=== PATIENT | male | born 1945 | race Hispanic/Latino ===

== ENCOUNTER 2018-09-24 18:52 | Inpatient (IN) | payer OTHER ==
[~2018-09-24] VITALS: Ht 170.2 cm; Wt 64.0 kg
[2018-09-24] MEDS ORDERED: ASPIRIN 81 MG CHEW TAB PO ONE (19:30)
[2018-09-24 19:36] LABS: BASOPHILS % 0.6 % (0.0-1.0); EOSINOPHILS # (AUTO) 0.1 (0.0-0.4); EOSINOPHILS % 1.7 % (0.0-6.0); HEMATOCRIT 41.1 % (38.2-49.6); HEMOGLOBIN 13.7 g/dL (14.0-18.0); LYMPHOCYTES # (AUTO) 2.2 (1.0-3.2); MEAN CORPUSCULAR HEMOGLOBIN 30.6 pg (28-32); MEAN CORPUSCULAR HGB CONC 33.3 g/dL (31-35); MEAN CORPUSCULAR VOLUME 91.9 fL (81-99); MONOCYTES # (AUTO) 0.7 (0.2-0.8); MONOCYTES % 9.8 % (4.4-11.3); NEUTROPHILS % 56.8 % (38.7-80.0); PLATELET COUNT 264 x10e3/uL (140-360); RED BLOOD COUNT 4.47 x10e6/uL (4.3-5.7); RED CELL DISTRIBUTION WIDTH 14.1 % (11.7-14.4)
[2018-09-24 19:45] LABS: INR 0.89; PROTHROMBIN TIME 12.5 seconds (11.9-14.5)
[2018-09-24 19:46] LABS: PARTIAL THROMBOPLASTIN TIME 30.4 seconds (23.8-35.5)
[2018-09-24 19:56] LABS: ALBUMIN 3.9 g/dL (3.5-5.0); ANION GAP 14.1 mmol/L (8-16); CREATININE, SERUM 1.25 mg/dL (0.72-1.25); POTASSIUM 3.1 mmol/L (3.5-5.1)
--- NOTE | 2018-09-24 19:56 | Diagnostic Imaging Report ---
A single frontal view of the chest. HISTORY: chest pain COMPARISON: None available. DISCUSSION: Portable technique, limits sensitivity of the exam. Overlying monitoring leads. Tubes/Lines: None Lungs and pleura: Mild bibasilar atelectasis. No evidence of a consolidative pneumonia or pulmonary alveolar edema. No definite pleural effusion or pneumothorax is identified. Heart and mediastinum: The cardiomediastinal silhouette appears unremarkable. Bones and soft tissues: Appear unremarkable, given this limited exam. IMPRESSION: 1. Mild bibasilar atelectasis. 2. Otherwise, no acute radiographic abnormality. Signed by: Dr. Alireza Thorne D.O., M.M.M. on 09/24/2018 7:53 PM
[2018-09-24 20:02] LABS: CREATINE KINASE MB 1.8 ng/mL (0-5.0)
[2018-09-24] MEDS ORDERED: FUROSEMIDE40 MG PO (20:33)
[2018-09-24] MEDS ORDERED: ENTRESTO PO (20:33)
[2018-09-24] MEDS ORDERED: ATORVASTATIN CA80 MG PO (20:33)
[2018-09-24] MEDS ORDERED: LEVOTHYROXINE25 MCG PO (20:33)
[2018-09-24] MEDS ORDERED: METFORMIN HCL500 MG PO (20:33)
[2018-09-24] MEDS ORDERED: CLOPIDOGREL75 MG PO (20:33)
[2018-09-24] MEDS ORDERED: METOPROLOL SUCC25 MG PO (20:33)
[2018-09-24] MEDS ORDERED: POTASSIUM CHLORIDE 20 MEQ TAB CR PO ONE (20:39)
[2018-09-24] MEDS ORDERED: DEXTROSE 50% SYRINGE 50 ML IV PRN (21:00)
--- OUTSIDE RECORDS SUMMARY | 2018-09-24 21:02 | XMS REPORT ---
Author Author [facility] Address Unknown Phone Unavailable Care Team Providers Care Supervisor Finishing Department Name Role Phone Genoveva MILLER Unavailable Unavailable Problems This patient has no known problems. Allergies, Adverse Reactions, Alerts This patient has no known allergies or adverse reactions. Medications This patient has no known medications. Results Test Description Test Time Test Comments Text Results Atomic Results Result Comments CHEST SINGLE (PORTABLE) 2018-09-24 19:50:00 [facility] [address] [address] Patient Name: KITTY CHENEY MR #: [id number] : 1945 Age/Sex: 72/M Req #: [id number] Adm Physician: Ordered by: ALEX TORRES MD Report #: [id number] Location: ER Room/Bed: Procedure: [id number] DX/CHEST SINGLE (PORTABLE) Exam Date: 09/24/18 Exam Time: 1934 REPORT STATUS: Signed A single frontal view of the chest. HISTORY: chest pain COMPARISON: None available. DISCUSSION: Portable technique, limits sensitivity of the exam. Overlying monitoring leads. Tubes/Lines: None Lungs and pleura: Mild bibasilar atelectasis. No evidence of a consolidative pneumonia or pulmonary alveolar edema. No definite pleural effusion or pneumothorax is identified. Heart and mediastinum: The cardiomediastinal silhouette appears unremarkable. Bones and soft tissues: Appear unremarkable, given this limited exam. IMPRESSION: 1. Mild bibasilar atelectasis. 2. Otherwise, no acute radiographic abnormality. Signed by: Dr. Xander Thorne D.O., M.M.M. on 09/24/2018 7:53 PM Dictated By: XANDER THORNE DO 52 Transcribed By: GALINDO on 09/24/181952 COPY TO: ALEX TORRES MD
[2018-09-24] MEDS: INSULIN REGULAR, HUMAN 100 UNIT/1 ML 3ML VIAL SQ SCH (21:44)
[2018-09-25] VITALS (10 sets, daily range): BP systolic 102–141; BP diastolic 58–74
--- NOTE | 2018-09-25 00:20 | NUR ---
Received report from ZAN Paniagua nurse. patient arrived via stretcher. Patient in no pain or distress. call light within reach.
[2018-09-25 03:57] LABS: CREATINE KINASE MB 1.6 ng/mL (0-5.0)
[2018-09-25 06:13] LABS: BASOPHILS % 0.3 % (0.0-1.0); EOSINOPHILS # (AUTO) 0.1 (0.0-0.4); EOSINOPHILS % 2.3 % (0.0-6.0); HEMATOCRIT 37.9 % (38.2-49.6); HEMOGLOBIN 12.5 g/dL (14.0-18.0); LYMPHOCYTES # (AUTO) 1.8 (1.0-3.2); LYMPHOCYTES % 29.8 % (18.0-39.1); MEAN CORPUSCULAR HEMOGLOBIN 30.4 pg (28-32); MEAN CORPUSCULAR VOLUME 92.2 fL (81-99); MONOCYTES # (AUTO) 0.8 (0.2-0.8); NEUTROPHILS # (AUTO) 3.3 (2.1-6.9); NEUTROPHILS % 54.4 % (38.7-80.0); PLATELET COUNT 222 x10e3/uL (140-360); RED BLOOD COUNT 4.11 x10e6/uL (4.3-5.7); RED CELL DISTRIBUTION WIDTH 14.1 % (11.7-14.4)
[2018-09-25 06:46] LABS: ALANINE AMINOTRANSFERASE 9 IU/L (0-55); ALBUMIN 3.2 g/dL (3.5-5.0); ALKALINE PHOSPHATASE 92 IU/L (40-150); ANION GAP 9.6 mmol/L (8-16); BLOOD UREA NITROGEN 20 mg/dL (7-26); BUN/CREATININE RATIO 19 (6-25); CALCIUM 9.4 mg/dL (8.4-10.2); CARBON DIOXIDE 28 mmol/L (22-29); CHLORIDE 107 mmol/L (98-107); CHOL/HDL RATIO 3.6 (3.9-4.7); CHOLESTEROL 160 MD/DL (0-199); CREATININE, SERUM 1.07 mg/dL (0.72-1.25); EST GLOMERULAR FILTRATION RATE > 60 ML/MIN (60-); GLUCOSE 90 mg/dL (74-118); HDL CHOLESTEROL 45 MG/DL (40-60); LDL CHOLESTEROL 90 MG/DL (60-130); POTASSIUM 3.6 mmol/L (3.5-5.1); SODIUM 141 mmol/L (136-145); TRIGLYCERIDES 126 MG/DL (0-149)
--- NOTE | 2018-09-25 07:15 | NUR ---
Patient is a&ox4 in NAD. Tele#[phone], SR@[phone]. POC discussed. Patient verbalized understanding. Bed in lowest position, locked and call shaw within reach.
--- NOTE | 2018-09-25 07:23 | NUR ---
Gave report to oncoming nurse. Patient A&Ox3. Call light within reach. Patient in bed.
[2018-09-25] MEDS: INSULIN REGULAR, HUMAN 100 UNIT/1 ML 3ML VIAL SQ SCH (07:30)
[2018-09-25] MEDS: ASPIRIN 81 MG ENTERIC COATED PO SCH (08:36)
[2018-09-25] MEDS ORDERED: DEXTROSE 50% SYRINGE 50 ML IV PRN (10:30)
[2018-09-25] MEDS ORDERED: FUROSEMIDE 40 MG TAB PO SCH (11:00)
[2018-09-25] MEDS: INSULIN LISPRO 100 UNIT/1 ML 3ML VIAL SQ SCH ×3 (11:30→21:00)
[2018-09-25] MEDS: POTASSIUM CHLORIDE 10MEQ EA PO SCH (11:39)
[2018-09-25] MEDS: LEVOTHYROXINE SODIUM 25 MCG TABLET PO SCH (11:40)
[2018-09-25] MEDS: CLOPIDOGREL BISULFATE 75 MG TAB PO SCH (11:40)
[2018-09-25] MEDS: METOPROLOL SUCCINATE 25 MG TAB XL PO SCH (17:00)
--- NOTE | 2018-09-25 17:06 | History and Physical ---
PCP: Dr. Armani Beach. INVESTIGATOR OPERATOR: Dr. Blaze Catherine. CHIEF COMPLAINT: Chest pain with history of coronary artery disease with cardiac stent. HISTORY: A 72 years old male with cardiac stent, came in with chest pain typical per patient description. The patient is an ex-smoker, quit many years ago. He had only cholecystectomy. No cardiac surgery. The patient, however, had stent placement and he is on Plavix and aspirin. The patient is stable. Pain off and on for the past few months. The patient is otherwise stable. Cardiac enzyme has been negative. PAST MEDICAL HISTORY: Coronary artery disease with stent. Compensated congestive heart failure. Diabetes type 2. Dyslipidemia. Hypertension. PAST SURGICAL HISTORY: Coronary stent. Cholecystectomy. SOCIAL HISTORY: The patient quit smoking many years ago. No alcohol consumption. ALLERGIES: NO KNOWN ALLERGIES. HOME MEDICATIONS: List is reviewed. REVIEW OF SYSTEMS: Chest pain, resolved. No nausea. No vomiting. No radiating pain. PHYSICAL EXAMINATION: VITAL SIGNS: Temperature is 98, blood pressure 106/59, pulse rate 54, respirations 18. GENERAL: The patient is not in acute distress. HEENT: Normocephalic, atraumatic. Anicteric. NECK: Supple grossly. PULMONARY: Diminished breath sounds with some coarse. CARDIOVASCULAR: S1, S2. Regular rate and rhythm. ABDOMEN: Soft. EXTREMITIES: No cyanosis or edema. NEUROLOGIC: No gross focal deficit. IMPRESSION: 1. Chest pain. 2. Baseline coronary artery disease with stent and congestive heart failure compensated. PLAN: Consult Dr. Blaze Catherine. Continue with home medication. Hold off the metformin for now. Insulin sliding scale coverage. Check echocardiogram. The patient's cardiac enzyme has been negative. BUN and creatinine is 20 and 1.07 respectively. MD CONRADO Atkins/MODL /[id number]
--- NOTE | 2018-09-25 19:05 | NUR ---
Walking rounds done. Patient in restroom without any complaints voiced. Patient instructed to call for assistance as needed and verbalized understanding.
--- NOTE | 2018-09-25 19:51 | NUR ---
PATIENT RESTING IN BED, HE DENIES CHEST PAIN AT THIS TIME. SKIN INTEGRITY INTACT, BRUISES TO THE ARMS, LUNGS SOUNDS DIMINISHED AND HE DENIES SHORTNESS OF BREATH. CALL LIGHT WITHIN EASY REACH, HE'S INSTRUCTED TO CALL FOR ASSISTANCE NEEDED.
[2018-09-25] MEDS: FUROSEMIDE INJ 10 MG/ML 4 ML VIAL IV SCH (21:50)
[2018-09-25] MEDS: ATORVASTATIN 40 MG TAB PO SCH (21:50)
[2018-09-26] VITALS (7 sets, daily range): BP systolic 89–121; BP diastolic 54–70
--- NOTE | 2018-09-26 00:54 | NUR ---
NO ACUTE DISTRESS OBSERVED, PATIENT DENIES CHEST PAIN. BLOOD PRESSURE LOW, PATIENT DENIES DIZZINESS. HE'S INSTRUCTED TO CALL FOR ASSISTANCE UPON GETTING OUT OF THE BED.
--- NOTE | 2018-09-26 01:01 | Consultation ---
DATE OF CONSULTATION: 09/25/2018 Cardiology Consult Note. REASON FOR CONSULT: Chest pain. CHIEF COMPLAINT: Chest pain. HISTORY OF PRESENT ILLNESS: The patient is a 72-year-old man with history of coronary artery disease status post two stents in the past, who presents with chest pain since yesterday. Chest pain is constant, left-sided, does not change with exertion, some improvement with burping. No diaphoresis. Does not radiate anywhere. No shortness of breath. It lasted all night and was still having this morning, but is getting better. REVIEW OF SYSTEMS: As above, otherwise negative. PAST MEDICAL HISTORY: 1. Coronary artery disease, status post stenting. 2. Chronic systolic heart failure. 3. Diabetes. 4. Dyslipidemia. 5. Hypertension. PAST SURGICAL HISTORY: Coronary stent, cholecystectomy. SOCIAL HISTORY: Former smoker, quit many years ago. Does not drink or abuse drugs. ALLERGIES: NO KNOWN DRUG ALLERGIES. HOME MEDICATIONS: List reviewed. FAMILY HISTORY: No family history of early CAD or sudden cardiac . OBJECTIVE: VITAL SIGNS: Temperature 95.3, pulse 60, respiratory rate 20, blood pressure 121/69, saturating 98% on room air. GENERAL: Elderly man in no acute distress. CARDIOVASCULAR: Regular rate and rhythm. No murmurs, rubs, or gallops. LUNGS: Clear to auscultation. ABDOMEN: Soft, nontender, nondistended. NEUROLOGIC: Intact. Alert and oriented to person, place, and time. Normal affect. INPATIENT MEDICATIONS: Reviewed. LABORATORY DATA: Reviewed. Troponins are negative. IMAGING DATA: Reviewed. Chest x-ray without any significant cardiopulmonary abnormalities. Telemetry data reviewed, shows normal sinus rhythm. EKG reviewed, shows normal sinus rhythm with nonspecific ST changes. ASSESSMENT: 1. Chest pain. 2. History of coronary artery disease, status post stents in the past. 3. Chronic systolic heart failure. PLAN: The patient has been ruled out for acute DC with serial cardiac enzymes. BNP was mildly elevated. We will give him a dose of IV Lasix in addition to his oral dose of Lasix. Overall, starting to feel better already. Chest pain is very atypical. If he rules out for acute DC, he is okay to be discharged home with followup in clinic one week after discharge with Dr. Catherine. MD HOLDEN Boston/SHAWL /[id number]
--- NOTE | 2018-09-26 04:15 | NUR ---
PATIENT CONDITION STABLE, HE DENIES CHEST PAIN. CALL LIGHT WITHIN EASY, HE'S INSTRUCTED TO CALL FOR ASSISTANCE NEEDED.
[2018-09-26] MEDS: LEVOTHYROXINE SODIUM 25 MCG TABLET PO SCH (06:35)
--- NOTE | 2018-09-26 06:58 | NUR ---
Walking rounds done. Patient is resting in bed denies any pain, SOB, dizziness or Cp. He was instructed to call for assistance as needed and verbalized understanding. Tele#[phone], SB@[phone]. Call shaw within reach.
[2018-09-26] MEDS: INSULIN LISPRO 100 UNIT/1 ML 3ML VIAL SQ SCH ×4 (07:30→20:17)
[2018-09-26] MEDS: ENTRESTO PO SCH (08:08)
[2018-09-26] MEDS: POTASSIUM CHLORIDE 10MEQ EA PO SCH (08:16)
[2018-09-26] MEDS: CLOPIDOGREL BISULFATE 75 MG TAB PO SCH (08:16)
[2018-09-26] MEDS: ASPIRIN 81 MG ENTERIC COATED PO SCH (08:16)
[2018-09-26] MEDS: FUROSEMIDE INJ 10 MG/ML 4 ML VIAL IV SCH ×2 (08:16→20:22)
[2018-09-26] MEDS: METOPROLOL SUCCINATE 25 MG TAB XL PO SCH (08:17)
[2018-09-26] MEDS ORDERED: FUROSEMIDE40 MG PO (09:28)
--- NOTE | 2018-09-26 11:30 | NUR ---
Per Benita Johnson NP, after reviewing records patient's EF on echo has decreased. She communicated that the patient would possibly need a heart cath and consult with EP. Dr. Pratt called and updated. Received order to cancel discharge and make patient an inpatient
--- NOTE | 2018-09-26 13:52 | NUR ---
Patient transferred to unit from OBS. Patient is AAOx3. Ambulates with assist. Arrived via wheelchair. No c/o chest pain and no shortness of breath noted. Patient is on O2 at 2L NC. Lung garcia clear to auscultation. Bowel sounds present x4. NO edema noted.
--- NOTE | 2018-09-26 13:52 | NUR ---
Patient transferred to room 101 per inpatient order. Report given to RN.
--- NOTE | 2018-09-26 14:28 | Progress Note ---
DATE: Cardiology Progress Note SUBJECTIVE: The patient complains of left-sided chest pain and also some shortness of breath. Denies any weakness. OBJECTIVE: VITAL SIGNS: Temperature 96.8, pulse 65, respiratory rate 22, blood pressure 121/70, and oxygen saturation 100% on room air. GENERAL: Alert and oriented x3. Resting comfortably in bed. Does not appear to be in any acute distress. NECK: Supple. No JVD noted. CARDIOVASCULAR: Regular rate and rhythm. No murmurs or gallops noted. LUNGS: Diminished breath sounds throughout. No wheezing. No rhonchi or crackles. ABDOMEN: Soft and nontender. CARDIOVASCULAR MEDICATIONS: Metoprolol 25 mg p.o. b.i.d., Lasix 40 mg q.12 hours IV, Plavix 75 p.o. daily, aspirin 81 p.o. daily, and atorvastatin 80 p.o. at bedtime. LABORATORY DATA: No new labs from today. Troponin negative as of yesterday. ASSESSMENT: 1. Atypical chest pain. 2. History of coronary artery disease, status post stents in the past. 3. Chronic systolic heart failure. RECOMMENDATIONS: Repeat cardiac enzymes again today. Review echocardiogram from the office first. Preliminary of the current echocardiogram in this admission shows ejection fraction of 15% approximately. Maintain on telemetry at all time. Parameters given for administration of cardiac medication . Dictated by Benita Canas NP Blaze Catherine MD JWV/KELL /[id number]
[2018-09-26] MEDS: ATORVASTATIN 40 MG TAB PO SCH (20:22)
--- NOTE | 2018-09-26 22:11 | NUR ---
Patient said he used the restroom often so he doesn't want the bed alarm on.
[2018-09-27] VITALS (9 sets, daily range): BP systolic 103–121; BP diastolic 53–68
--- NOTE | 2018-09-27 03:07 | Discharge Summary ---
The patient was placed on observation BARRATTE OPERATOR: Blaze Catherine MD Seen by Dr. Ortega. HISTORY: This is a 72-year-old male with coronary artery disease and congestive heart failure, came into the hospital with atypical chest pain. The patient has had vascular congestion with increase in BNP. The patient was seen by Dr. Sagar Ortega covering for Dr. Blaze Catherine. The patient is stable. He was given extra Lasix and he is doing well. No chest pain and no shortness of breath. Only medication the patient go home will be the change from furosemide/Lasix 40 mg once a day to twice a day. Add on potassium 20 mEq daily. If the patient is stable, we will discharge home. Follow up with Dr. Blaze Catherine next week. DISCHARGE MEDICATIONS: 1. Resume home medication with changes of Lasix 40 mg twice a day. 2. Potassium 20 mEq daily. MD CONRADO Atkins/KELL /[id number]
[2018-09-27] MEDS: LEVOTHYROXINE SODIUM 25 MCG TABLET PO SCH (05:33)
--- NOTE | 2018-09-27 07:16 | NUR ---
Rcvd patient in report this am. Patient is asleep in bed at this time. No s/s of distress noted.
[2018-09-27] MEDS: INSULIN LISPRO 100 UNIT/1 ML 3ML VIAL SQ SCH ×4 (07:30→20:26)
[2018-09-27] MEDS: FUROSEMIDE INJ 10 MG/ML 4 ML VIAL IV SCH ×3 (08:01→20:25)
[2018-09-27] MEDS: ASPIRIN 81 MG ENTERIC COATED PO SCH (08:01)
[2018-09-27] MEDS: ENTRESTO PO SCH (08:01)
[2018-09-27] MEDS: POTASSIUM CHLORIDE 10MEQ EA PO SCH (08:02)
[2018-09-27] MEDS: CLOPIDOGREL BISULFATE 75 MG TAB PO SCH (08:02)
[2018-09-27] MEDS ORDERED: ACETAMINOPHEN 325 MG TAB PO PRN (08:15)
[2018-09-27] MEDS ORDERED: ACETAMINOPHEN/CODEINE 300MG - 30MG TAB PO PRN (08:15)
[2018-09-27] MEDS ORDERED: METOPROLOL SUCCINATE 25 MG TAB XL PO SCH (09:00)
[2018-09-27 10:13] LABS: ANION GAP 16.7 mmol/L (8-16); CALCIUM 10.3 mg/dL (8.4-10.2); CREATININE, SERUM 1.31 mg/dL (0.72-1.25); POTASSIUM 3.7 mmol/L (3.5-5.1)
--- NOTE | 2018-09-27 10:32 | NUR ---
Patient is AAOx3. Patient lung garcia clear to auscultation. Bowel sounds present x4. No edema noted. Patient ambulates on his own but had some dizziness this am when ambulating. NO c/o chest pain at this time. patient resting in bed.
[2018-09-27] MEDS ORDERED: SODIUM CHLORIDE 0.9% 1000ML 1,000 ML IV SCH (12:30)
[2018-09-27] MEDS ORDERED: ISOSORBIDE MONONITRATE 30 MG TAB CR PO SCH (12:45)
--- NOTE | 2018-09-27 13:05 | NUR ---
Met with patient and family and explained IMM letter. Verbalized understanding and signed Copy to pt and original placed on chart.
--- NOTE | 2018-09-27 14:38 | Progress Note ---
DATE: Cardiology Progress Note SUBJECTIVE: The patient continues to endorse some left-sided chest pain including last night. Denies any shortness of breath. OBJECTIVE: VITAL SIGNS: Temperature 97.0, pulse 78, respiratory rate 18, blood pressure 115/68, and oxygen saturation 97% on room air. GENERAL: Alert and oriented x3. Resting comfortably in bed, does not appear to be in any acute distress. NECK: Supple. No JVD noted. CARDIOVASCULAR: Regular rate and rhythm. No murmurs, no gallops noted. LUNGS: Diminished breath sounds throughout. No wheezing. No rhonchi or crackles. ABDOMEN: Soft and nontender. EXTREMITIES: Lower extremity, no edema. 2+ pedal pulses. CARDIOVASCULAR MEDICATIONS: 1. Metoprolol succinate 25 mg p.o. daily. 2. Potassium chloride 20 mEq p.o. daily. 3. Plavix 75 p.o. daily. 4. Lasix 40 mg IV q.12 hours. 5. Aspirin 81 mg p.o. daily. 6. Atorvastatin 80 mg p.o. at bedtime. LABORATORY DATA: Sodium 140, potassium 3.7, BUN 28, and creatinine 1.31. TELEMETRY: Sinus rhythm. ASSESSMENT: 1. Atypical chest pain. 2. History of coronary artery disease, status post stents in the past, [id number] myocardial infarction in 2017. 3. Chronic systolic heart failure with now worsening ejection fraction. RECOMMENDATIONS: Left heart catheterization scheduled for tomorrow morning. IV hydration overnight with noted renal insufficiency. Maintain on telemetry at all time. Long-acting nitrate added to the above-listed cardiac medications for pain control. We will continue to follow patient very closely. The patient will need AICD evaluation or LifeVest upon discharge. EP has been consulted. The patient is well known to our practice and has become more noncompliant lately. It is reported by nursing that he recently lost his . Dictated by Benita Canas NP MD LEONID DeshpandeV/SHAWL /[id number]
--- NOTE | 2018-09-27 19:14 | Consultation ---
DATE OF CONSULTATION: 09/27/2018 CONSULT DIAGNOSIS: Evaluation for ICD for primary prevention of sudden cardiac . HISTORY OF PRESENT ILLNESS: Mr. Dos Santos is a 72-year-old gentleman with advanced ischemic cardiomyopathy. He had three stents put in last year by Dr. Catherine and he was on Entresto, he was on Plavix. His EF continues to drop and currently 15%, he has NYHA class III. He presented with chest pain again and he was supposed to have a heart catheterization tomorrow. PAST MEDICAL HISTORY: Ischemic cardiomyopathy, EF 15%, NYHA class III. Coronary artery disease, PCI, and chest pain. SOCIAL HISTORY: The patient lives in [place]. His six months ago. He lives by himself. FAMILY HISTORY: Negative for sudden or atrial fibrillation. REVIEW OF SYSTEMS: As above. Otherwise negative for fevers, chills, loss of vision or blurry vision, ear pain, ear discharge, headache, numbness. Positive for chest pain and palpitation. Negative for cough, sputum, nausea, vomiting, dysuria, frequency, rash, bruise, bleeding, clots, anxiety, depression, heat or cold intolerance. PHYSICAL EXAMINATION: VITAL SIGNS: Blood pressure 110/75, heart rate is 62 beats per minute. GENERAL: The patient is lying in bed, in no apparent distress. NECK: No lymphadenopathy. Thyroid exam is normal. CARDIOVASCULAR: S1 and S2. LUNGS: Clear bilaterally. ABDOMEN: Soft, benign. EXTREMITIES: Warm and dry. NEURO: Nonfocal. SKIN: No new rash. PSYCH: No anxiety or depression. IMAGING: EKG shows normal sinus rhythm at 62, QRS is 92. ASSESSMENT AND PLAN: A 72-year-old gentleman with advanced severe ischemic cardiomyopathy on optimal medical management, had cath last year, ejection fraction remains very low. He has class I indication for implantable cardioverter-defibrillator for primary prevention of sudden cardiac , although not bradycardiac, but heart rate on the low side of the normal spectrum therefore he would require dual-chamber implantable cardioverter-defibrillator to be able to optimize his beta-blockers. I discussed with him and I will discuss with Dr. Catherine. Dr. Catherine, he would benefit from this. We will decide on the timing of this procedure after his cath. Due to his very low EF and long standing ischemic cardiomyopathy, he is very high risk for sudden , so we will recommend implantable cardioverter-defibrillator implant as soon as possible. In summary, dual implantable cardioverter-defibrillator implant recommended. We will wait for cath results to finalize the plan. MD CATINA Means/KELL /[id number]
--- NOTE | 2018-09-27 19:28 | NUR ---
Patient complain of heartburn. Message left for Dr. Pratt. Waiting for call back.
[2018-09-27] MEDS: ATORVASTATIN 40 MG TAB PO SCH (20:18)
--- NOTE | 2018-09-27 22:11 | NUR ---
patient had hibiclens bath.
[2018-09-28 04:00] VITALS: BP 97/63
[2018-09-28] MEDS: LEVOTHYROXINE SODIUM 25 MCG TABLET PO SCH (05:05)
[2018-09-28 05:31] LABS: INR 0.9; PARTIAL THROMBOPLASTIN TIME 30.9 seconds (23.8-35.5); PROTHROMBIN TIME 12.6 seconds (11.9-14.5)
[2018-09-28 05:37] LABS: ANION GAP 11.5 mmol/L (8-16); BLOOD UREA NITROGEN 28 mg/dL (7-26); BUN/CREATININE RATIO 25 (6-25); CALCIUM 8.7 mg/dL (8.4-10.2); CARBON DIOXIDE 27 mmol/L (22-29); CHLORIDE 101 mmol/L (98-107); CREATININE, SERUM 1.13 mg/dL (0.72-1.25); EST GLOMERULAR FILTRATION RATE > 60 ML/MIN (60-); GLUCOSE 94 mg/dL (74-118); POTASSIUM 4.5 mmol/L (3.5-5.1); SODIUM 135 mmol/L (136-145)
--- NOTE | 2018-09-28 05:48 | NUR ---
BP rechecked 101/61 mmhg pulse 58 bpm. Patient is asymptomatic. Alert and oriented.
[2018-09-28] MEDS ORDERED: LIDOCAINE HCL 2% LOCAL 20 ML VIAL ONE (06:39)
[2018-09-28] MEDS ORDERED: IOPAMIDOL 370 MG/ML 200 ML INFUS..BTL INJ ONE ×2 (06:39→07:31)
[2018-09-28] MEDS ORDERED: HEPARIN SOD/SOD CHLORIDE 2,000 ML ONE (06:39)
[2018-09-28] MEDS ORDERED: VERAPAMIL HCL 2.5 MG/ML 2 ML VIAL ONE (06:43)
[2018-09-28] MEDS ORDERED: MIDAZOLAM HCL 2 MG/2 ML VIAL ONE (06:44)
[2018-09-28] MEDS ORDERED: SODIUM CHLORIDE 0.9% 1000ML 1,000 ML ONE (06:45)
[2018-09-28] MEDS ORDERED: NITROGLYCERIN/D5W 200 MCG/ML 250 ML ONE (06:45)
[2018-09-28] MEDS ORDERED: FENTANYL CITRATE/PF 100MCG/2 ML INJ ONE (06:45)
--- NOTE | 2018-09-28 07:30 | NUR ---
Received patient AAOx3, son at bedside. Patient on room air. Patient has gone for heart cath procedure. No s/s of distress. Patient on NPO diet for procedure. Tele monitor #27 running at normal sinus rhythm. Patient transferred to laborer plumbing via bed.
[2018-09-28] MEDS ORDERED: BIVALRIUDIN 250 MG/VIAL VIAL IV ONE (07:35)
[2018-09-28] MEDS ORDERED: SODIUM CHLORIDE 0.9% 50ML 50 ML ONE (07:35)
[2018-09-28] MEDS ORDERED: ASPIRIN 325 MG TAB ONE (07:48)
[2018-09-28] MEDS ORDERED: TICAGRELOR 90 MG TABLET ONE (07:48)
--- NOTE | 2018-09-28 08:10 | NUR ---
Patient has returned from curb and gutter laborer. Patient is to lay flat until 10 am and then he can be discharged. Patient placed on cardiac diet. Normal saline running at 75 ml/hr. Procedure site to the right groin. Stent to the left anterior descending. Dressing to the puncture site is dry and intact without any complications. Son at the bedside. No s/s of distress and patient on room air. Side rails up x2, bed in lowest position, and call shaw within reach.
[2018-09-28 08:43] VITALS: BP 114/59
[2018-09-28] MEDS ORDERED: ASPIRIN 325 MG TAB PO SCH (08:45)
--- NOTE | 2018-09-28 10:25 | NUR ---
EDUCATED ABOUT IMM, SIGNED, FILED IN CHART, WITH COPY LEFT WITH FAMILY AT BEDSIDE.
[2018-09-28 11:37] VITALS: BP 110/56
[2018-09-28] MEDS ORDERED: LASIX40 MG PO (12:32)
[2018-09-28] MEDS ORDERED: POTASSIUM99 M1 PO (12:35)
[2018-09-28] MEDS ORDERED: ECOTRIN81 MG PO (12:39)
[2018-09-28] MEDS ORDERED: KLOR-CON20 MEQ PO (12:40)
--- NOTE | 2018-09-28 14:32 | Progress Note ---
DATE: 09/28/2018 Cardiology Progress Note SUBJECTIVE: Mr. Dos Santos has no further angina. His shortness of breath has resolved. He is scheduled for coronary angiography today. PHYSICAL EXAMINATION: VITAL SIGNS: Afebrile, heart rate 58, blood pressure is 108/70, and O2 saturation 98%. CARDIOVASCULAR: Regular rhythm, S3 gallop, systolic murmur. LUNGS: Clear to auscultation bilaterally. TELEMETRY: Shows sinus bradycardia. ASSESSMENT: Acute systolic heart failure. RECOMMENDATIONS: Coronary angiography and LAD stent placement performed successfully without complications. The patient is stable for discharge from the cardiac standpoint with close followup in 2 weeks in the office. I thank Dr. Pratt for this consultation. MD LESLIE Deshpande/MODL /[id number]
--- NOTE | 2018-09-28 15:53 | Operative Report ---
DATE OF PROCEDURE: 09/28/2018 SURGEON: Blaze Catherine MD INDICATIONS: Coronary artery disease, and congestive heart failure. PROCEDURES PERFORMED: 1. Left heart catheterization, selective coronary angiography. 2. PTCA and stent placement in the distal left anterior descending artery. 3. Deployment of right groin Perclose closure device. COMPLICATIONS: None. RECOMMENDATIONS: Medical therapy including reassessment of ejection fraction in 90 days and consideration for ICD placement. DESCRIPTION OF PROCEDURE: Access was obtained in the right femoral artery. A 6-Khmer sheath was placed. Diagnostic coronary angiogram revealed mild disease in the left main, proximal left anterior descending artery stents were widely patent. Mid left anterior descending artery 50%, distal left anterior descending artery is 90% stenosis. Circumflex, moderate 30% to 50% stenosis. Right coronary artery, focal tandem 50% stenosis, remaining vessels had diffuse 30% to 50% stenosis. A decision was made to intervene on the left anterior descending artery. The patient received intravenous Angiomax, oral Brilinta, and aspirin for anticoagulation. The left main was cannulated using an XB3.56-Khmer guiding catheter. A short wire was advanced across the lesion. Primary stent with a 2.0 x 8 and a 225 x 8 mm Resolute Avila drug-eluting stents at 18-20 atmospheres. Excellent end result less than 10% residual stenosis. SHAR-3 flow. No complications. Right groin sheath and guide were removed. TR band applied. The patient was discharged home same day. Blaze Catherine MD KSB/MODL /[id number]
--- NOTE | 2018-09-29 02:36 | Discharge Summary ---
ADDENDUM: PRIMARY CARE PHYSICIAN: Dr. Kailee Arechiga. RN DERMATOLOGY: Dr. Blaze Catherine. FINAL DIAGNOSES: 1. Status post percutaneous coronary intervention to the left anterior descending with stent. 2. Acute on chronic systolic dysfunction, congestive heart failure exacerbation with ejection fraction of 15%. HISTORY OF PRESENT ILLNESS: The patient is a 72 years old male with worsening ejection fraction 15% from previously. The patient underwent cardiac catheterization today and had a PCI to the LAD with stent. The patient is stable. He is already on Plavix and aspirin at home. He is already on other medications including Entresto. His diuretic has been changed from Lasix 40 mg daily to 40 mg twice a day. Potassium is also giving on a prescription. The patient is stable, discharged home today. Follow up with his family doctor within a week. Follow up with Dr. Blaze Catherine next week. He is status post PCI and will be discharged after lunch. The patient is stable discharged home today. MD CONRADO Atkins/KELL /[id number]
== END 2018-09-28 13:34 | disposition home or self-care (01) | DRG 246 ==
LOC: ER 18:52 → ERHOLD 21:00 → IMCU 09-25 00:12 → OBSVTOIN 09-26 11:33 → MED/SURG 09-26 13:49
PROVIDERS: ADMIT Internal Medicine; ATTEND Internal Medicine
PROC: 027034Z Dilation of Coronary Artery, One Artery with Drug-eluting Intraluminal Device, Percutaneous Approach (ICD-10-PCS; principal; 2018-09-28)
PROC: 4A023N7 Measurement of Cardiac Sampling and Pressure, Left Heart, Percutaneous Approach (ICD-10-PCS; 2018-09-28)
PROC: B2111ZZ Fluoroscopy of Multiple Coronary Arteries using Low Osmolar Contrast (ICD-10-PCS; 2018-09-28)
DX: I25.10 Atherosclerotic heart disease of native coronary artery without angina pectoris (principal); I50.23 Acute on chronic systolic (congestive) heart failure; I11.0 Hypertensive heart disease with heart failure; I25.2 Old myocardial infarction; E11.9 Type 2 diabetes mellitus without complications; Z79.4 Long term (current) use of insulin; E78.5 Hyperlipidemia, unspecified; I25.5 Ischemic cardiomyopathy; Z87.891 Personal history of nicotine dependence
CPT/HCPCS: 36415; 71045; 80048; 80053; 80061; 82550; 82553; 82948; 83880; 84484; 85025; 85610; 85730; 92928; 93005; 93306; 93454; 99284; C1725; C1769; C1874; C1887; G0378; J0583; J1940; J2001; J2250; J7030; Q9967

== ENCOUNTER → 2021-02-01 | Day surgery (SDC) | payer OTHER ==
[2021-01-30 08:21] LABS: BASOPHILS % 0.5 % (0.0-1.0); EOSINOPHILS # (AUTO) 0.1 (0.0-0.4); EOSINOPHILS % 1.7 % (0.0-6.0); HEMATOCRIT 40.4 % (38.2-49.6); HEMOGLOBIN 12.7 g/dL (14.0-18.0); LYMPHOCYTES # (AUTO) 1.6 (1.0-3.2); LYMPHOCYTES % 21.3 % (18.0-39.1); MEAN CORPUSCULAR HEMOGLOBIN 29.6 pg (28-32); MEAN CORPUSCULAR HGB CONC 31.4 g/dL (31-35); MEAN CORPUSCULAR VOLUME 94.2 fL (81-99); MONOCYTES # (AUTO) 0.8 (0.2-0.8); MONOCYTES % 10.2 % (4.4-11.3); NEUTROPHILS % 65.9 % (38.7-80.0); PLATELET COUNT 226 x10e3/uL (140-360); RED BLOOD COUNT 4.29 x10e6/uL (4.3-5.7); RED CELL DISTRIBUTION WIDTH 14.8 % (11.7-14.4)
[~2021-02-01] MED LIST: ALLOPURINOL100 MG PO; ATORVASTATIN CA80 MG PO; CLOPIDOGREL75 MG PO; ECOTRIN81 MG PO; ENTRESTO PO; FUROSEMIDE40 MG PO; KLOR-CON20 MEQ PO; LASIX40 MG PO; LEVOTHYROXINE25 MCG PO; METFORMIN HCL500 MG PO; METOPROLOL SUCC25 MG PO; POTASSIUM99 M1 PO
[2021-02-01 09:20] VITALS: BP 112/78
== END | disposition home or self-care (01) ==
LOC: OR 08:05
PROVIDERS: ATTEND Internal Medicine Gastroenterology
DX: Z12.11 Encounter for screening for malignant neoplasm of colon (principal); D12.3 Benign neoplasm of transverse colon; D12.5 Benign neoplasm of sigmoid colon; K21.9 Gastro-esophageal reflux disease without esophagitis; I10 Essential (primary) hypertension; E11.9 Type 2 diabetes mellitus without complications; I69.351 Hemiplegia and hemiparesis following cerebral infarction affecting right dominant side; J44.9 Chronic obstructive pulmonary disease, unspecified; I25.10 Atherosclerotic heart disease of native coronary artery without angina pectoris; I25.2 Old myocardial infarction; E78.5 Hyperlipidemia, unspecified; E03.9 Hypothyroidism, unspecified; Z01.810 Encounter for preprocedural cardiovascular examination; Z01.812 Encounter for preprocedural laboratory examination; Z20.822 Contact with and (suspected) exposure to COVID-19; Z79.82 Long term (current) use of aspirin; Z79.02 Long term (current) use of antithrombotics/antiplatelets; Z79.84 Long term (current) use of oral hypoglycemic drugs; Z95.5 Presence of coronary angioplasty implant and graft; Z95.810 Presence of automatic (implantable) cardiac defibrillator
CPT/HCPCS: 36415; 45385; 85025; 93005; U0002; 45378